=== PATIENT | female | born 1995 | race Caucasian/White ===

== ENCOUNTER 2018-02-13 03:18 | Emergency (ER) | payer OTHER ==
[~2018-02-13] VITALS: Ht 172.7 cm; Wt 71.0 kg
[2018-02-13 03:34] VITALS: O2SAT 97; Ht 172.7 cm; Wt 71.0 kg
[2018-02-13 04:12] LABS: BLOOD UREA NITROGEN 8 mg/dl (7-18); CALCIUM 7.9 mg/dl (8.5-10.1); CARBON DIOXIDE 22 mmol/L (21-32); CREATININE 0.57 mg/dl (0.60-1.20); GLUCOSE 107 mg/dl (70-99); POTASSIUM 3.1 mmol/L (3.5-5.1); SODIUM 140 mmol/L (136-145)
[2018-02-13] MEDS ORDERED: POTASSIUM CHLORIDE 10 MEQ TABCR PO STA (04:41)
[2018-02-13 06:24] VITALS: TEMP 37
[2018-02-13] MEDS ORDERED: LORAZEPAM 2 MG/ML 1 ML VIAL IV STA (09:42)
[2018-02-13] MEDS ORDERED: POTASSIUM CHLORIDE 10 MEQ TABCR ONE (09:50)
[2018-02-13] MEDS ORDERED: NICOTINE 14 MG/24 HR TDSY ONE (09:50)
[2018-02-13] MEDS ORDERED: IBUPROFEN 600 MG TAB PO STA (10:06)
[2018-02-13 10:43] LABS: BASO % 0.3 %; BASO ABS # 0.02 K/uL (0-0.2); EOS % 2.4 %; EOS ABS # 0.19 K/uL (0-0.5); HEMATOCRIT 41.4 % (37-47); HEMOGLOBIN 13.9 g/dL (12.0-16.0); IG# 0.02 K/uL (0.00-0.02); LYMPH % 37.6 %; LYMPH ABS # 2.92 K/uL (1.2-3.4); MEAN CELL VOLUME 87.9 fL (80-100); MEAN CORPUSCULAR HEMOGLOBIN 29.5 pg (25-34); MEAN CORPUSCULAR HGB CONC 33.6 g/dl (32-36); MEAN PLATELET VOLUME 9.6 fL (7.4-10.4); MONO % 7.7 %; NEUT % 51.7 %; NEUT ABS # 4.02 K/uL (1.4-6.5); PLATELET COUNT 311 K/uL (130-400); RED CELL DISTRIBUTION WIDTH CV 12.8 % (11.5-14.5); RED CELL DISTRIBUTION WIDTH SD 41.4 fL (36.4-46.3); WHITE BLOOD COUNT 7.77 K/uL (4.8-10.8)
--- NOTE | 2018-02-13 13:41 | EMERGENCY ROOM VISIT NOTE ---
History First contact with patient: 09:29 Chief Complaint: ALCOHOL OVERDOSE Stated Complaint: etoh Nursing Triage Summary: Pt was found unconsious outside the [facility] in the rain. History of Present Illness The patient is a 22 year old white female who is reevaluated after becoming sober. Care was transferred due to change of shift. Please see Chidi KING dictation for initial history and physical. Patient was downtown drinking with a coworker last evening. She remembers being at the [facility]. She states she remembers having a picture of alcohol and then a few shots. She remembers starting the second picture of alcohol but has no recollection after that. She reportedly was found unconscious outside the bar in the rain. The [place] police found her and called EMS. She did require sedation with Versed due to combativeness while in the ambulance. She woke this morning and was asking for mental health help. She states that her killed himself in November and she has not been dealing well with it. She has a 3-year-old daughter and [id number] son at home. They are currently with her in-laws. She states that they take the children to [place] every Wednesday. She is currently feeling depressed and verbalizes suicidal ideation. She is requesting help. She currently complains of a headache. She has no other complaints. She did obtain a new tattoo last night. She denies any chest pain, shortness of breath, abdominal pain, nausea, vomiting, upper respiratory symptoms, numbness, or tingling. Review of Systems REVIEW OF SYSTEM: HEENT: No dizziness, visual problems, hearing loss, or tinnitus. There is no difficulty swallowing and no oral lesions are present. LYMPH: No adenopathy. PULMONARY: No cough, shortness of breath, sputum production or hemoptysis. CARDIOVASCULAR: No chest pain, palpitations, shortness of breath or peripheral edema. GASTROINTESTINAL: No diarrhea, constipation, nausea, vomiting, or abdominal pain. GENITOURINARY: No dysuria, frequency, urgency or nocturia. NEUROLOGIC: No weakness, muscle tenderness, epilepsy or history of neurological problems. MUSCULOSKELETAL: No history of joint tenderness/swelling. No history of arthritis or arthralgias. SKIN: No rashes or lesions. PSYCHIATRIC: Positive history of depression. ENDOCRINE: No history of diabetes, thyroid disorders, or abnormal hair growth. Past Medical/Surgical History Significant for depression Previous surgeries: None. Family History by suicide. Social History Smoking Status: Current Every Day Smoker Smokeless Tobacco Use: No Alcohol Use: occasionally Drug Use: none Marital Status: Housing Status: lives with family Occupation Status: employed Current/Historical Medications Unable to Obtain Active Prescriptions or Reported Meds Physical Exam Vital Signs Date Time Temp Pulse Resp B/P (MAP) Pulse Ox O2 Delivery O2 Flow Rate FiO2 02/13/18 10:22 76 16 114/65 96 Room Air 02/13/18 08:30 86 18 118/62 95 Room Air 02/13/18 08:02 86 20 106/71 95 02/13/18 07:30 89 19 102/66 95 02/13/18 07:07 98 16 108/56 95 Room Air 02/13/18 06:36 91 25 93 02/13/18 06:31 122/59 02/13/18 06:24 37.0 02/13/18 06:21 91 24 94 02/13/18 06:06 88 23 93 02/13/18 06:01 114/55 02/13/18 05:48 86 23 94 Room Air 02/13/18 05:31 106/69 02/13/18 05:18 85 21 98 02/13/18 05:07 35.6 02/13/18 05:01 123/57 02/13/18 04:48 72 19 98 02/13/18 04:30 90 22 109/57 99 Room Air 02/13/18 03:34 97 Room Air 02/13/18 03:34 97 Room Air 02/13/18 03:34 35.8 69 16 101/61 97 Room Air Physical Exam General: Well-developed, well-nourished, young white female, in stress. Laying on a bed. Alert and oriented. Mildly anxious. Occasionally tearful. Skin: Warm and dry with good turgor. No rashes or lesions. No ecchymosis or erythema. The patient is not diaphoretic. No abrasions. New tattoo on her left arm. HEENT: Normocephalic. Eyes PERRLA, EOMI. No conjunctiva or scleral injection. Ears TMs intact bilaterally with good light reflexes. Left TM is mildly erythemic. No bulging. Right TM has no erythema or bulging. No hemotympanum. Canals are patent. Nares patent bilaterally without turbinate enlargement. No significant drainage. No epistaxis. Oropharynx without erythema or exudate. Uvula midline, oral mucosa moist. No lesions present. Lymphatics are palpated without anterior or posterior chain enlargement or tenderness. Heart: Heart RRR. No MGR. Peripheral pulses are 2+. Lungs: Lungs are clear to auscultation. No crackles rhonchi or wheezing. Good air movement. The patient is able to take a deep breath. Abdomen: Abdomen was inspected, auscultated, and palpated. Bowel sounds present x 4. Soft, nontender to palpation. No hepato-splenomegaly. No masses noted. No rebound. Musculoskeletal: Patient has no discomfort with palpation over her cervical spine. Intact motion to the shoulders, elbows, wrists, hips, knees, and ankles. Neurologic: Gross sensation is intact across the upper and lower extremities by soft touch. Psych: Occasionally tearful with verbalization of suicidal ideation. Conversive , makes eye contact. Medical Decision & Procedures Laboratory Results 02/13/18 10:26 Red Blood Count 4.71, Mean Corpuscular Volume 87.9, Mean Corpuscular Hemoglobin 29.5, Mean Corpuscular Hemoglobin Concent 33.6, Mean Platelet Volume 9.6, Neutrophils (%) (Auto) 51.7, Lymphocytes (%) (Auto) 37.6, Monocytes (%) (Auto) 7.7, Eosinophils (%) (Auto) 2.4, Basophils (%) (Auto) 0.3, Neutrophils # (Auto) 4.02, Lymphocytes # (Auto) 2.92, Monocytes # (Auto) 0.60, Eosinophils # (Auto) 0.19, Basophils # (Auto) 0.02 02/13/18 03:31 Test 02/13/18 03:31 02/13/18 10:26 02/13/18 10:31 Anion Gap 10.0 mmol/L (3-11) Est Creatinine Clear Calc Drug Dose 154.8 ml/min Estimated GFR () > 150.0 Estimated GFR (Non- 130.7 BUN/Creatinine Ratio 14.8 (10-20) Calcium Level 7.9 mg/dl (8.5-10.1) Thyroid Stimulating Hormone (TSH) 0.976 uIu/ml (0.300-4.500) Ethyl Alcohol mg/dL 178.0 mg/dl (0-3) White Blood Count 7.77 K/uL (4.8-10.8) Red Blood Count 4.71 M/uL (4.2-5.4) Hemoglobin 13.9 g/dL (12.0-16.0) Hematocrit 41.4 % (37-47) Mean Corpuscular Volume 87.9 fL (80-100) Mean Corpuscular Hemoglobin 29.5 pg (25-34) Mean Corpuscular Hemoglobin Concent 33.6 g/dl (32-36) Platelet Count 311 K/uL (130-400) Mean Platelet Volume 9.6 fL (7.4-10.4) Neutrophils (%) (Auto) 51.7 % Lymphocytes (%) (Auto) 37.6 % Monocytes (%) (Auto) 7.7 % Eosinophils (%) (Auto) 2.4 % Basophils (%) (Auto) 0.3 % Neutrophils # (Auto) 4.02 K/uL (1.4-6.5) Lymphocytes # (Auto) 2.92 K/uL (1.2-3.4) Monocytes # (Auto) 0.60 K/uL (0.11-0.59) Eosinophils # (Auto) 0.19 K/uL (0-0.5) Basophils # (Auto) 0.02 K/uL (0-0.2) RDW Standard Deviation 41.4 fL (36.4-46.3) RDW Coefficient of Variation 12.8 % (11.5-14.5) Immature Granulocyte % (Auto) 0.3 % Immature Granulocyte # (Auto) 0.02 K/uL (0.00-0.02) Urine Color YELLOW Urine Appearance CLEAR (CLEAR) Urine pH 5.5 (4.5-7.5) Urine Specific [place] 1.013 (1.000-1.030) Urine Protein NEG (NEG) Urine Glucose (UA) NEG (NEG) Urine Ketones NEG (NEG) Urine Occult Blood NEG (NEG) Urine Nitrite NEG (NEG) Urine Bilirubin NEG (NEG) Urine Urobilinogen NEG (NEG) Urine Leukocyte Esterase NEG (NEG) Urine Test NEG (NEG) Urine Opiates Screen NEG (NEG) Urine Methadone, Qualitative NEG (NEG) Urine Barbiturates NEG (NEG) Urine Phencyclidine (PCP) Level NEG (NEG) Ur Amphetamine/Methamphetamine NEG (NEG) MDMA (Ecstasy) Screen NEG (NEG) Urine Benzodiazepines Screen POS (NEG) Urine Cocaine Metabolite NEG (NEG) Urine Marijuana (THC) NEG (NEG) CBC, UA, urine , PRP, urine toxicity, alcohol, and TSH were obtained. Urine negative. TSH is normal. PRP shows mild hypokalemia. This has been corrected. Medical alcohol was 178 at 3:30 AM. Urine is negative. UA is unremarkable. CBC is unremarkable. Urine toxicity is positive for benzodiazepines. Medications Administered Medications (Trade) Dose Ordered Sig/Ramonita Route Start Time Stop Time Status Last Admin Dose Admin Potassium Chloride (Klor-Con M10) 40 meq NOW STAT PO 02/13/18 04:41 02/13/18 04:42 DC 02/13/18 10:21 40 MEQ Nicotine (Nicoderm Cq 14MG Patch) 1 patch QAM TD 02/14/18 09:00 03/16/18 08:59 02/13/18 09:57 1 PATCH Miscellaneous (Remove Nicoderm Patch) 1 ea HS N/A 02/13/18 21:00 03/15/18 20:59 02/13/18 10:39 1 EA Lorazepam (Ativan Inj) 0.5 mg NOW STAT IV 02/13/18 09:42 02/13/18 09:44 DC 02/13/18 09:57 0.5 MG Ibuprofen (Motrin Tab) 600 mg NOW STAT PO 02/13/18 10:06 02/13/18 10:07 DC 02/13/18 10:22 600 MG ED Course Patient was evaluated in A8. Mental health nurse also evaluated the patient. She does require inpatient treatment. She is not safe to go home. Patient is agreeable to inpatient evaluation and treatment. Bed search has begun. She is able to go to the facility in [place]. She is agreeable. She was given Ativan 0.5 mg IV for anxiety. Nicotine patch 14 mg was also administered. She was also given potassium 40 MEQ as previously ordered for her hypokalemia and ibuprofen 600 mg for her headache. She remained stable while in the ED. Medical Decision Possibility of alcohol intoxication, depression, suicidal ideation, illicit drug use, metabolic imbalance, and altered mental status were considered among others. [place] Drug Monitoring Program Search Results: no issues identified Medication Reconcilliation Current Medication List: was personally reviewed by me Blood Pressure Screening Patient's blood pressure: Normal blood pressure Impression Primary Impression: Alcohol use with intoxication Additional Impressions: Hypokalemia Suicidal ideation Departure Information Dispostion Home / Self-Care Condition GOOD Prescriptions Unable to Obtain Active Prescriptions or Reported Meds Referrals No Doctor, Assigned (PCP) Forms HOME CARE DOCUMENTATION FORM, IMPORTANT VISIT INFORMATION Patient Instructions Alcohol Intoxication - [facility], Count Includes [facility] Additional Instructions Keep well-hydrated. Tylenol every 6 hours as needed for pain (Maximum 3000 mg Tylenol in 24 hr period). Follow up with family doctor and/or health services as needed. No driving for the next 24 hours. Recommend no alcohol for the next 48 hours and avoid binge drinking in the future. Return to ER sooner for chest pain, abdominal pain, worsening signs or symptoms or as needed. Problem Qualifiers
[2018-02-13] MEDS ORDERED: NICOTINE POLACRILEX 2 MG GUM ONE (14:47)
--- NOTE | 2018-02-13 16:53 | EMERGENCY ROOM VISIT NOTE ---
ED Visit Note First contact with patient: 13:30 Patient signed out by overnight team. CHAYO Shelley managing patient primarily. Patient reports depression and SI. Will to be admitted for psychiatric placement. 201 formed signed. Transport to [facility] pending.
[2018-02-13 19:33] VITALS: BP 118/69; PULSE 84; O2SAT 99
--- NOTE | 2018-02-13 22:18 | EMERGENCY ROOM VISIT NOTE ---
History First contact with patient: 03:21 Chief Complaint: ALCOHOL OVERDOSE Stated Complaint: etoh Nursing Triage Summary: Pt was found unconsious outside the [facility] in the rain. History of Present Illness The patient is a 22 year old female who presents to the Emergency Room with complaints of alcohol intoxication. Patient was combative with EMS and was sedated with Versed. Patient is passed out and I am unable to obtain history. History is obtained from EMS and the police. They report that the patient was stumbling in the street by the [place] with her roommate with no sober friends. The police summoned EMS. Patient became combative with EMS so she was sedated. Reportedly the patient has been drinking alcohol. No injuries were noted. Review of Systems Unable to obtain secondary to altered mental status from alcohol intoxication Past Medical/Surgical History Unable to obtain secondary to altered mental status from alcohol intoxication Social History Smoking Status: Unknown if Ever Smoked Current/Historical Medications Unable to Obtain Active Prescriptions or Reported Meds Physical Exam Vital Signs Date Time Temp Pulse Resp B/P (MAP) Pulse Ox O2 Delivery O2 Flow Rate FiO2 02/13/18 19:33 84 18 118/69 99 02/13/18 15:00 75 20 120/75 98 Room Air 02/13/18 10:22 76 16 114/65 96 Room Air 02/13/18 08:30 86 18 118/62 95 Room Air 02/13/18 08:02 86 20 106/71 95 02/13/18 07:30 89 19 102/66 95 02/13/18 07:07 98 16 108/56 95 Room Air 02/13/18 06:36 91 25 93 02/13/18 06:31 122/59 02/13/18 06:24 37.0 02/13/18 06:21 91 24 94 02/13/18 06:06 88 23 93 02/13/18 06:01 114/55 02/13/18 05:48 86 23 94 Room Air 02/13/18 05:31 106/69 02/13/18 05:18 85 21 98 02/13/18 05:07 35.6 02/13/18 05:01 123/57 02/13/18 04:48 72 19 98 02/13/18 04:30 90 22 109/57 99 Room Air 02/13/18 03:34 97 Room Air 02/13/18 03:34 97 Room Air 02/13/18 03:34 35.8 69 16 101/61 97 Room Air Physical Exam PHYSICAL EXAM: VITALS: Vitals are noted on the nurse's note and reviewed by myself. Vital signs low temperature and bear hugger was placed GENERAL: Stable, in no acute distress, nondiaphoretic, well-developed well- nourished. The patient is visibly intoxicated. SKIN: The skin was without obvious lacerations, abrasions, or rashes. There is no tenting of the skin. Capillary reflex less than 2 seconds. HEENT: Normocephalic, atraumatic. PERRLA. EOMI. Conjunctiva with mild injection without icterus. Tympanic membranes without erythema or effusion bilaterally no hemotympanum. External auditory canals are clear. Nares patent bilaterally. No epistaxis. Oropharynx without erythema or exudate. Uvula midline. Oral mucosal moist. No lymphadenopathy. Neck is supple without cervical spine tenderness. HEART: Regular rate and rhythm without murmurs gallops or rubs. Peripheral pulses 2+. LUNGS: Clear to auscultation bilaterally without wheezes, rales or rhonchi. ABDOMEN: Positive bowel sounds x 4. Normal tympanic percussion. Soft, nontender, without masses or organomegaly. MUSCULOSKELETAL: Gross motor function of the upper and lower extremities intact. The patient has a staggering gait. NEUROLOGIC: The patient is visibly intoxicated. Once they were more sober they were alert and oriented to person place and time. Medical Decision & Procedures Laboratory Results 02/13/18 10:26 Red Blood Count 4.71, Mean Corpuscular Volume 87.9, Mean Corpuscular Hemoglobin 29.5, Mean Corpuscular Hemoglobin Concent 33.6, Mean Platelet Volume 9.6, Neutrophils (%) (Auto) 51.7, Lymphocytes (%) (Auto) 37.6, Monocytes (%) (Auto) 7.7, Eosinophils (%) (Auto) 2.4, Basophils (%) (Auto) 0.3, Neutrophils # (Auto) 4.02, Lymphocytes # (Auto) 2.92, Monocytes # (Auto) 0.60, Eosinophils # (Auto) 0.19, Basophils # (Auto) 0.02 02/13/18 03:31 Test 02/13/18 03:31 02/13/18 10:26 02/13/18 10:31 Anion Gap 10.0 mmol/L (3-11) Est Creatinine Clear Calc Drug Dose 154.8 ml/min Estimated GFR () > 150.0 Estimated GFR (Non- 130.7 BUN/Creatinine Ratio 14.8 (10-20) Calcium Level 7.9 mg/dl (8.5-10.1) Thyroid Stimulating Hormone (TSH) 0.976 uIu/ml (0.300-4.500) Ethyl Alcohol mg/dL 178.0 mg/dl (0-3) White Blood Count 7.77 K/uL (4.8-10.8) Red Blood Count 4.71 M/uL (4.2-5.4) Hemoglobin 13.9 g/dL (12.0-16.0) Hematocrit 41.4 % (37-47) Mean Corpuscular Volume 87.9 fL (80-100) Mean Corpuscular Hemoglobin 29.5 pg (25-34) Mean Corpuscular Hemoglobin Concent 33.6 g/dl (32-36) Platelet Count 311 K/uL (130-400) Mean Platelet Volume 9.6 fL (7.4-10.4) Neutrophils (%) (Auto) 51.7 % Lymphocytes (%) (Auto) 37.6 % Monocytes (%) (Auto) 7.7 % Eosinophils (%) (Auto) 2.4 % Basophils (%) (Auto) 0.3 % Neutrophils # (Auto) 4.02 K/uL (1.4-6.5) Lymphocytes # (Auto) 2.92 K/uL (1.2-3.4) Monocytes # (Auto) 0.60 K/uL (0.11-0.59) Eosinophils # (Auto) 0.19 K/uL (0-0.5) Basophils # (Auto) 0.02 K/uL (0-0.2) RDW Standard Deviation 41.4 fL (36.4-46.3) RDW Coefficient of Variation 12.8 % (11.5-14.5) Immature Granulocyte % (Auto) 0.3 % Immature Granulocyte # (Auto) 0.02 K/uL (0.00-0.02) Urine Color YELLOW Urine Appearance CLEAR (CLEAR) Urine pH 5.5 (4.5-7.5) Urine Specific [place] 1.013 (1.000-1.030) Urine Protein NEG (NEG) Urine Glucose (UA) NEG (NEG) Urine Ketones NEG (NEG) Urine Occult Blood NEG (NEG) Urine Nitrite NEG (NEG) Urine Bilirubin NEG (NEG) Urine Urobilinogen NEG (NEG) Urine Leukocyte Esterase NEG (NEG) Urine Test NEG (NEG) Urine Opiates Screen NEG (NEG) Urine Methadone, Qualitative NEG (NEG) Urine Barbiturates NEG (NEG) Urine Phencyclidine (PCP) Level NEG (NEG) Ur Amphetamine/Methamphetamine NEG (NEG) MDMA (Ecstasy) Screen NEG (NEG) Urine Benzodiazepines Screen POS (NEG) Urine Cocaine Metabolite NEG (NEG) Urine Marijuana (THC) NEG (NEG) Medications Administered Medications (Trade) Dose Ordered Sig/Ramonita Route Start Time Stop Time Status Last Admin Dose Admin Potassium Chloride (Klor-Con M10) 40 meq NOW STAT PO 02/13/18 04:41 02/13/18 04:42 DC 02/13/18 10:21 40 MEQ Nicotine (Nicoderm Cq 14MG Patch) 1 patch QAM TD 02/14/18 09:00 02/14/18 09:00 DC 02/13/18 09:57 1 PATCH Miscellaneous (Remove Nicoderm Patch) 1 ea HS N/A 02/13/18 21:00 02/13/18 21:00 DC 02/13/18 10:39 1 EA Lorazepam (Ativan Inj) 0.5 mg NOW STAT IV 02/13/18 09:42 02/13/18 09:44 DC 02/13/18 09:57 0.5 MG Ibuprofen (Motrin Tab) 600 mg NOW STAT PO 02/13/18 10:06 02/13/18 10:07 DC 02/13/18 10:22 600 MG Nicotine Polacrilex (Nicorette 2MG Gum) 1 piece STK-MED ONCE .ROUTE 02/13/18 14:47 02/13/18 14:48 DC 02/13/18 14:56 1 PIECE ED Course Prior records/ancillary studies reviewed. Triage Nursing notes reviewed. Additional history obtained from EMS and police. The patient's history was concerning for altered mental status and a possible alcohol overdose. Differential diagnosis: Etiologies such as alcohol intoxication, toxicologic, infection, hypoglycemia, electrolyte abnormalities, cardiac sources, intracerebral event, neurologic, as well as others were entertained. Physical examination: As above. The patient is clinically intoxicated. no trauma noted. ER treatment provided: Monitoring Aspiration precautions Bear Hugger Was placed until temperature was normalized The patient was frequently reassessed. Diagnostic interpretation by me: Cardiac monitoring did not reveal any evidence of dysrhythmia. The labs revealed hypokalemia. The patient's blood alcohol level was 178 mg/dL. Patient was reassessed multiple times remained stable. Patient is still sedated and intoxicated at the time of signout. Case is signed out to SERENITY Tolbert, pending patient sobering up and reevaluation in stable condition. The chart was completed utilizing [email or web address] Speech voice recognition software. Grammatical errors, random word insertions, pronoun errors, and incomplete sentences are an occassional consequence of this system due to software limitations, ambient noise, and hardware issues. Any formal questions or concerns about the content, text, or information contained within the body of this dictation should be directly addressed to the physician field assistant for clarification. Medical Decision As above Medication Reconcilliation Current Medication List: was personally reviewed by me Blood Pressure Screening Patient's blood pressure: Normal blood pressure Impression Primary Impression: Alcohol use with intoxication Additional Impression: Hypokalemia Departure Information Prescriptions Unable to Obtain Active Prescriptions or Reported Meds Forms HOME CARE DOCUMENTATION FORM, IMPORTANT VISIT INFORMATION Patient Instructions Alcohol Intoxication - [facility], [facility] Additional Instructions Problem Qualifiers
[2018-02-14] MEDS ORDERED: NICOTINE 14 MG/24 HR TDSY TD SCH (09:00)
== END 2018-02-13 19:33 ==
LOC: EDBD 03:18 → C.EDA 03:20
DX: F10.129 Alcohol abuse with intoxication, unspecified (principal); R45.851 Suicidal ideations; E87.6 Hypokalemia; F17.210 Nicotine dependence, cigarettes, uncomplicated